=== PATIENT | female | born 1995 | race African-American/Black ===

== ENCOUNTER 2019-12-31 15:44 | Emergency (ER) | payer OTHER, SELFPAY ==
--- NOTE | 2019-12-31 15:53 | ED.GENADULT ---
HPI - General Adult General Chief complaint: Nausea/Vomiting/Diarrhea Stated complaint: nausea Time Seen by Provider: 12/31/19 15:53 Source: patient Mode of arrival: ambulatory Limitations: no limitations History of Present Illness HPI narrative: 24-year-old female patient presents to the [facility] with complaints of nausea and vomiting. Patient states that she recently found out that she is . Patient estimates she is about 7 weeks . Patient states she does not see her [employer] until the end of December. Patient states that she does have some lab work scheduled to be drawn tomorrow. Patient states over the weekend she started having some nausea and vomiting. Patient states that Sunday and Sunday she was able to keep some crackers and juice down but continues to have chronic nausea and vomiting. Patient is 1 para 0. Patient denies any abdominal pain. Denies any pain with urination. Denies any concerns for STDs. Related Data Allergies Allergy/AdvReac Type Severity Reaction Status Date / Time No Known Allergies Allergy Verified 12/31/19 16:11 Review of Systems Review of Systems: Narrative: CONSTITUTIONAL: Denies fever, chills, or sweats. EYES: Denies visual changes, redness, or discharge. ENT: Denies rhinorrhea, congestion, sore throat, or otalgia. CARDIOVASCULAR: Denies chest pain, palpitations, or edema. RESPIRATORY: Denies cough or dyspnea. GASTROINTESTINAL: Denies abdominal pain, positive nausea, vomiting, denies diarrhea. GENITOURINARY: Denies dysuria or hematuria. SKIN: Denies rash or itching. MUSCULOSKELETAL: Denies back pain, joint pain, or myalgia. NEUROLOGIC: Denies headache, numbness, or weakness. PSYCHIATRIC: Denies anxiety or depression. PMFSH Comments At the time of my signature I agree with nursing past medical history, surgical, social, and family history. There is no relevant family history pertinent to the presenting complaint. Exam Narrative: Exam Narrative: GENERAL: Well-appearing, well-nourished, and in no acute distress. HEAD: Normocephalic, atraumatic. EYES: PERRLA and EOMI. ENT: Nares clear, no rhinorrhea or epistaxis. Mucous membranes moist. NECK: Supple. No lymphadenopathy CHEST: Clear to auscultation. No respiratory distress. HEART: Regular rate and rhythm. No murmur heard. Normal peripheral pulses. ABDOMEN: Soft, flat, nondistended. No guarding, rebound tenderness, or rigid. No pulsatilla masses. Bowel sounds present in all four quadrants. No organomegaly. Negative Up?s sign. No periumbicial tenderness. No Supra public tenderness or distension. Good femoral pulses bilaterally. No hernia noted. No scars or surface trauma. EXTREMITIES: Normal range of motion. No edema. SKIN: Warm, dry, no rash. NEURO: No focal deficits. Alert and oriented x3. Course Reevaluation(s) Reevaluation #1: Reevaluated patient. Patient states that she is feeling better and the nausea has stopped. Patient was given some crackers and water which was she was able to keep down. Patient does feel really sleepy at this time. Patient is called a friend to come and pick her up to drive her home since she is very sleepy after the Phenergan shot. Discussed with patient if she continues to have nausea and vomiting despite the medication we are sending her home with and she would need to go the ER. Patient verbalized understanding of this. Date: 12/31/19 Time: 17:58 Vital Signs Vital signs: Vital Signs Temperature 36.5 C 12/31/19 16:04 Pulse Rate 98 12/31/19 16:04 Respiratory Rate 16 12/31/19 16:04 Blood Pressure 102/78 12/31/19 16:04 Pulse Oximetry 98 12/31/19 16:04 Temperature 36.5 C 12/31/19 16:04 Pulse Rate 98 12/31/19 16:04 Respiratory Rate 16 12/31/19 16:04 Blood Pressure 102/78 12/31/19 16:04 Pulse Oximetry 98 12/31/19 16:04 Vital signs reviewed. Medical Decision Making Differential Diagnosis Differential Diagnosis: Differential diagnosis: Appendicitis,
[2019-12-31 16:04] VITALS: BP 102/78; PULSE 98; RESP 16; TEMP 36.5; O2SAT 98
[2019-12-31] MEDS: PROMETHAZINE HCL 25 MG/ML AMPUL IM (16:42)
--- NOTE | 2019-12-31 17:37 | PC.NURSE ---
pt able to tolerate small sips of water and is now trying to eat some surjit crackers pt very sleepy at this time. Pt informed she will need to call for a ride home due to how tired the medications have made her. Pt verbalizes understanding states she has someone that will pick her up.
--- NOTE | 2019-12-31 18:05 | PC.NURSE ---
pt able to tolerate some surjit crackers and water pt calling for a ride home at this time. Will continue to monitor pt until her ride arrives for her.
== END 2019-12-31 18:20 | disposition home or self-care (01) ==
PROVIDERS: Emergency Provider Nurse Practitioner Family; PCP Family Medicine
DX: O21.0 Mild hyperemesis gravidarum (principal); Z3A.01 Less than 8 weeks gestation of pregnancy
CPT/HCPCS: 96372; 99203; G0463; J2550